=== PATIENT | male | born 1950 | race Caucasian/White ===

== ENCOUNTER 2020-10-17 09:00 | Outpatient (RCR) | payer MEDICARE, OTHER, SELFPAY | END 2020-10-27 10:11 | disposition home or self-care (01) | LOC: HO.PT 09:00 | PROVIDERS: PCP Internal Medicine Medical Oncology; Visit Provider Internal Medicine Medical Oncology | DX: M25.562 Pain in left knee (principal) | CPT/HCPCS: 97110; 97161 ==

== ENCOUNTER 2022-01-04 13:45 | Outpatient (REF) | payer MEDICARE, OTHER, SELFPAY ==
--- NOTE | ~2022-01-04 | XR_ITS ---
EXAMINATION: XR CHEST CLINICAL INFORMATION: Flank pain. COMPARISON: None TECHNIQUE: 2 views of the chest were obtained. FINDINGS: No significant abnormality is noted involving the heart, lungs, mediastinum, bony thorax or soft tissues. XR/XR chest 2V IMPRESSION: No acute cardiopulmonary process.
== END 2022-01-04 13:46 | disposition home or self-care (01) ==
LOC: HO.XRAY 13:45
PROVIDERS: PCP Internal Medicine Medical Oncology; Visit Provider Internal Medicine Medical Oncology
DX: R07.81 Pleurodynia (principal); R10.9 Unspecified abdominal pain; E78.2 Mixed hyperlipidemia
CPT/HCPCS: 71046

== ENCOUNTER 2022-01-05 09:00 | Outpatient (REF) | payer MEDICARE, OTHER, SELFPAY ==
--- NOTE | ~2022-01-05 | US_ITS ---
EXAMINATION: US ABDOMEN COMPLETE CLINICAL INFORMATION: Mixed hyperlipidemia. Unspecified abdominal pain. COMPARISON: None TECHNIQUE: Real-time imaging of the abdominal viscera. FINDINGS: PANCREAS: Normal. ABDOMINAL AORTA: The proximal, mid, and distal segments are normal in caliber. INFERIOR VENA CAVA: Visualized portions are normal. LIVER: Normal. The liver is normal in size. The liver contour is normal. Parenchymal echogenicity is normal. No focal hepatic lesion. There is no intrahepatic biliary duct dilatation seen. GALLBLADDER: Normal. The gallbladder is physiologically distended without evidence of stones, sludge, polyps, wall thickening or pericholecystic fluid. COMMON BILE DUCT: Normal in caliber measuring 0.2 cm in diameter. RIGHT KIDNEY: At the interpolar aspect, a 6 mm anechoic, simple cyst is seen. There are further smaller simple parapelvic cysts. No hydronephrosis or renal calculi. The kidney measures 12.6 cm in maximum dimension. LEFT KIDNEY: There are small simple parapelvic cysts. No hydronephrosis or renal calculi. The kidney measures 10.6 cm in maximum dimension. SPLEEN: Normal. The spleen measures 10.2 cm in maximum dimension. FREE FLUID: None. US/US abdomen complete IMPRESSION: There are small simple bilateral renal cysts, for which no imaging follow-up is recommended. The examination is otherwise unremarkable.
== END 2022-01-05 09:01 | disposition home or self-care (01) ==
LOC: HO.US 09:00
PROVIDERS: PCP Internal Medicine Medical Oncology; Visit Provider Internal Medicine Medical Oncology
DX: E78.2 Mixed hyperlipidemia (principal); R10.9 Unspecified abdominal pain; R07.81 Pleurodynia
CPT/HCPCS: 76700

== ENCOUNTER → 2022-05-18 10:05 | Outpatient (REF) | payer MEDICARE, OTHER, SELFPAY ==
--- NOTE | 2022-05-18 10:09 | CA_ITS ---
Acquisition Time: 2022-05-18 10:48:43 Total Exercise Time: 00:09:13 Test Indications: LIGHTHEADED Medications: Protocol: JOEL Max HR: 125 BPM 83% of Pred: 149 BPM Max BP: 138/070 mmHG Max Work Load: 10.4 METS Exercise stress test 9 min 13 sec of Joel protocol achieiving 83% MPHR, without anginal symptoms, without arrythmias, with normotensive response to exercise, with borderline ST changes V5 and V6 which correct quickly in recovery. Accuracy to assess for ischemia slightly decreased as he achieved only 83% MPHR. Test reviewed with Dr. Humphrey. Referred By: Blayne Cordero Overread By: BAILEE DANG
== END ==
LOC: HO.CARD 10:05
PROVIDERS: PCP Internal Medicine Medical Oncology; Visit Provider Internal Medicine Medical Oncology
DX: I25.10 Atherosclerotic heart disease of native coronary artery without angina pectoris (principal); I25.2 Old myocardial infarction; R42 Dizziness and giddiness
CPT/HCPCS: 93017

== ENCOUNTER 2024-01-02 06:12 | Day surgery (SDC) | payer MEDICARE, OTHER, SELFPAY ==
[2023-12-29 14:14] VITALS: BMI 27.1
[2024-01-02 06:37] VITALS: BMI 26.8
[2024-01-02] MEDS: Lactated Ringers 1,000 ML 80 ML IVCONT (06:46)
[2024-01-02 07:14] VITALS: BP 138/65; PULSE 66; RESP 18; TEMP 36.7; O2SAT 99
--- NOTE | 2024-01-02 07:17 | HO.ANESPROP2 ---
FORMERLY [facility] Past Medical History Medical History Elevated cholesterol HTN (hypertension) CAD (coronary artery disease) Surgical History Surgical History Hx of cardiac catheterization Hx of hand surgery History of esophagogastroduodenoscopy (EGD) H/O colonoscopy History of Problems with Anesthesia: No Social History Social History Are you a primary overnight caregiver to a significant other at home: No Do you presently have visiting nurse or other home services: No Patient Tobacco Use Status: Never used Tobacco Substance Use Frequency: Occasionally Have you been hit, kicked, punched, or otherwise hurt by someone within the past year? If so, by whom?: No Are you DNR?: No Advance Directives: No Advance Directives Information Provided: Yes Recently lost weight without trying: No Nutrition Risks: No Nutritional Risk Meds Allergies Allergy/AdvReac Type Severity Reaction Status Date / Time cat dander [CATS] Allergy Unknown UNKNOWN Verified 01/02/24 06:40 Active Medications: Current Medications Lactated Ringer's (Lr) 1,000 mls @ 80 mls/hr IVCONT .[id number] [facility] Last Admin: 01/02/24 06:46 Dose: 80 mls/hr Sodium Biphosphate/Sodium Phosphate (Sodium Phosphate,[place]-Dibasic 133 Ml Enema) 133 ml DC ONCE PRN PRN Reason: Poor Colonoscopy Prep Results Home Medications ?Medication ?Instructions ?Recorded ?Confirmed ?Last Taken ?Type aspirin 81 mg tablet,delayed 81 mg PO DAILY 12/29/23 12/29/23 12/26/23 History release atorvastatin 80 mg tablet 80 mg PO DAILY 12/29/23 12/29/23 Unknown History lisinopril 40 mg tablet 40 mg PO DAILY 12/29/23 12/29/23 Unknown History metoprolol tartrate 25 mg tablet 12.5 mg PO BID 12/29/23 12/29/23 Unknown History multivitamin 1 tab PO DAILY 12/29/23 12/29/23 Unknown History valacyclovir 500 mg tablet 500 mg PO DAILY 12/29/23 12/29/23 Unknown History Exam Height,Weight and Vital Signs: Height 5 ft 10 in Weight 84.822 kg Last Vital Signs Temp 98.0 F 01/02/24 07:14 Pulse 66 01/02/24 07:14 Resp 18 01/02/24 07:14 BP 138/65 01/02/24 07:14 Pulse Ox 99 01/02/24 07:14 O2 Del Method Room Air 01/02/24 07:14 Airway Mallampati Class: III TM Dist: >3cm Neck ROM: Full Loose/Missing/Broken Teeth: No Heart: RRR Lungs: CTA Assessment and Plan Assessment Anesthesia Assessment: Anesthesia Plan Discussed and Chart Reviewed Final Anesthetic Review History of Problems with Anesthesia: No NPO: Yes ASA Class: III Final Preanesthetic Review: Meds/Allgs Chart Reviewed, Consent Obtained/Reviewed and Anes Risks/Benef Reviewed Patient Risk: Low Procedure Risk: Low Anesthetic Plan Anesthetic Plan: MAC: Disposition: Standard PACU
[2024-01-02 08:32] VITALS: BP 128/67; PULSE 65; RESP 18; TEMP 36.4; O2SAT 98
--- NOTE | 2024-01-02 08:37 | P.BOP_ITS ---
Brief Operative Note Date of Service: 01/02/24 Pre-op diagnosis: Screening Post-op diagnosis: other (Polyp) Procedure: Colonoscopy to the cecum and TI with cold snare polypectomy and biopsy/removal of polyp Surgeon: Blayne Vang MD Anesthesia: MAC Was an Circular Stuffer used for this Procedure?: No Estimated blood loss (mL): 2.0 Pathology: other (A. Cecal polyp) Condition: stable Disposition: PACU
[2024-01-02 08:47] VITALS: BP 136/65; PULSE 63; RESP 18; TEMP 36.4; O2SAT 98
--- NOTE | 2024-01-02 08:58 | OP_ITS ---
DATE OF SERVICE: 01/02/2024 SURGEON: Blayne Vang MD INDICATIONS: The patient presents for followup of personal history of tubular adenoma of the colon and need for colorectal cancer screening. Full consent has been obtained from him for this, including risks of bleeding and perforation. PREOPERATIVE DIAGNOSIS: POSTOPERATIVE DIAGNOSIS: PROCEDURE PERFORMED: Colonoscopy to the cecum and terminal ileum with cold snare polypectomy and biopsy and removal of polyp. ESTIMATED BLOOD LOSS: COMPLICATIONS: ANESTHESIA: Monitored anesthesia care. ASSISTANTS: SPECIMENS: PREOPERATIVE DIAGNOSES: Colorectal cancer screening and personal history of tubular adenoma of the colon. POSTOPERATIVE DIAGNOSES: Colorectal cancer screening, personal history of tubular adenoma of the colon, colon polyp, diverticulosis, and internal hemorrhoids. DESCRIPTION OF PROCEDURE: The patient was placed in the left lateral decubitus position. The digital rectal exam revealed no abnormalities. The Olympus video pediatric colonoscope was then entered into the rectum and advanced easily to the cecum. Once in the cecum, I did identify normal appearing ileocecal valve. The entire cecal pouch was well visualized including the appendiceal orifice. In the cecum, was an approximately 5 or 6 mm polyp, which was removed partially by cold snare polypectomy and recovered by suction. The remaining tissue was removed by cold biopsy forceps and placed in the same container. The polypectomy site appeared clean, without any sign of residual polyp nor any significant bleeding. The terminal ileum was cannulated and appeared normal. The scope was withdrawn back in the colon. The remainder of the cecum appeared normal. The scope was slowly withdrawn assessing all mucosal surfaces carefully. Preparation was excellent. I did not visualize any other polyps, colitis, nor angiodysplasias. There was a moderate amount of sigmoid diverticulosis. In the rectum, scope was retroflexed, visualizing internal hemorrhoids, but no other pathology. The rectal mucosa appeared normal. Scope was straightened and withdrawn from the patient. He tolerated the procedure well and was returned to the recovery area in stable condition. IMPRESSION: 1. Colon polyp. 2. Diverticulosis. 3. Internal hemorrhoids. PLAN: The results of the pathology will be checked. I would recommend a repeat colonoscopy in 5 years for further screening. He was advised to resume his aspirin tomorrow. MD CHU Sanders/ROSCOE / [phone]
== END 2024-01-02 09:19 | disposition home or self-care (01) ==
PROVIDERS: PCP Internal Medicine Medical Oncology; Visit Provider Internal Medicine
PROC: 0DJD8ZZ Inspection of Lower Intestinal Tract, Via Natural or Artificial Opening Endoscopic (ICD-10-PCS; CPT 45378; principal; 2024-01-02 07:30)
DX: Z12.11 Encounter for screening for malignant neoplasm of colon (principal); D12.0 Benign neoplasm of cecum; K57.30 Diverticulosis of large intestine without perforation or abscess without bleeding; K64.8 Other hemorrhoids; Z86.0101 Personal history of adenomatous and serrated colon polyps; I10 Essential (primary) hypertension; E78.5 Hyperlipidemia, unspecified; Z79.82 Long term (current) use of aspirin; Z79.899 Other long term (current) drug therapy; Z79.02 Long term (current) use of antithrombotics/antiplatelets
CPT/HCPCS: 45385; 45380; 88305; J2003; J2704